=== PATIENT | male | born 1965 | race American Indian/Alaskan Native ===

== ENCOUNTER 2021-04-19 11:02 | Emergency (ER) | payer SELFPAY ==
[2021-04-19 11:22] VITALS: BP 128/82
[2021-04-19] MEDS ORDERED: ACETAMINOPHEN W/CODEINE 300-30 MG TAB PO ONE (12:38)
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
--- NOTE | 2021-04-19 13:12 | XRay Report ---
Right ankle, 3 views HISTORY: Pain and swelling COMPARISON: None FINDINGS: Tiny corticated ossific density at the distal tip of the fibula and bony remodeling of the posterior malleolus of the tibia, most consistent with sequela of prior trauma. There is moderately a dvanced degenerative arthrosis of the ankle joint, component of which may be related to prior trauma. There is inferior tilt of the lateral talar dome. No acute fracture or malalignment. Ankle mortise i s symmetric. There is diffuse soft tissue swelling. IMPRESSION: 1. No acute osseous findings of the right ankle. Nonspecific diffuse soft tissue swelling of the ankl e. 2. Chronic degenerative and posttraumatic changes, as above. Signer Name: Travis Rivas MD Signed: 04/19/2021 1:08 PM Workstation Name: [id number]
== END 2021-04-19 15:01 | disposition home or self-care (01) ==
LOC: ED 11:02
DX: S90.01XA Contusion of right ankle, initial encounter (principal); M19.071 Primary osteoarthritis, right ankle and foot; W22.8XXA Striking against or struck by other objects, initial encounter; Y93.01 Activity, walking, marching and hiking; Y92.89 Other specified places as the place of occurrence of the external cause; Y99.8 Other external cause status
CPT/HCPCS: 99283

== ENCOUNTER 2021-05-14 15:45 | Emergency (ER) | payer SELFPAY ==
[2021-05-14 19:59] VITALS: BP 141/80
--- NOTE | 2021-05-15 09:35 | Electrocardiograph Report ---
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
== END 2021-05-14 20:50 | disposition home or self-care (01) ==
LOC: ED 15:45
DX: R42 Dizziness and giddiness (principal); Z53.21 Procedure and treatment not carried out due to patient leaving prior to being seen by health care provider
CPT/HCPCS: 93005